=== PATIENT | male | born 1940 | race Caucasian/White ===

== ENCOUNTER → 2019-02-18 11:17 | Outpatient (CLI) | payer MEDICARE, SELFPAY ==
--- NOTE | 2019-02-18 11:23 | CA_ITS ---
APPROVED REPORT Specimen Collector: Gayle Damon RDCS Laterality: Bilateral Study Quality: Adequate Indications: sirena Doppler Spectral Velocity Analysis dICA (R) 85.50/24.60 cm/s dICA (L) 95.40/24.10 cm/s Gypsy (R) 83.90/23.00 cm/s Gypsy (L) 80.50/20.60 cm/s pICA (R) 72.20/20.30 cm/s pICA (L) 51.30/16.00 cm/s dCCA (R) 83.40/12.30 cm/s dCCA (L) 77.10/13.50 cm/s pCCA (R) 105.40/21.40 cm/s pCCA (L) 117.00/22.30 cm/s Vert (R) 42.80/2.10 cm/s Vert (L) 37.60/5.80 cm/s ICA/CCA 1.03 ICA/CCA 1.24 Findings Duplex evaluation demonstrates stenosis of the right proximal internal carotid artery in the range of 20-49% with PSV <140 cm/sec, EDV <100 cm/sec, and IC/CC Ratio <4.0.Duplex evaluation demonstrates stenosis of the left proximal internal carotid artery <20% with PSV <140 cm/sec, EDV <100 cm/sec, and IC/CC Ratio <4.0.Antegrade flow seen bilateral vertebral arteries. Technically difficult exam secondary to anatomy Conclusion Duplex evaluation demonstrates stenosis of the right proximal internal carotid artery in the range of 20-49% with PSV <140 cm/sec, EDV <100 cm/sec, and IC/CC Ratio <4.0.Duplex evaluation demonstrates stenosis of the left proximal internal carotid artery <20% with PSV <140 cm/sec, EDV <100 cm/sec, and IC/CC Ratio <4.0.Antegrade flow seen bilateral vertebral arteries. Technically difficult exam secondary to anatomy Electronically signed by : Stas Jimenez MD 02/19/2019 14:38:42
== END ==
PROVIDERS: Visit Provider Nurse Practitioner Family
DX: R42 Dizziness and giddiness; I65.23 Occlusion and stenosis of bilateral carotid arteries
CPT/HCPCS: 93880

== ENCOUNTER → 2020-07-09 07:56 | Outpatient (CLI) | payer MEDICARE, SELFPAY ==
--- NOTE | 2020-07-09 07:58 | CA_ITS ---
APPROVED REPORT EXAM: Comprehensive 2D, Doppler, and color-flow Echocardiogram Refinery Operator Coking: Diana Bhandari RT(R) Ht: 5 ft 9 in Wt: 176lbs BSA: 1.96 BP: 160/74 mmHg Indications: CAD, SOA, ex smoker, HTN, hyperlipidemia, AFIB, GERD, JONES 2D Dimensions LVOT 2.10 cm (M/F) 1.5-2.5 LA Volume 88.10 mL LA Volume Index 45.17 mL/m2 (M/F) 16-34 M-Mode Dimensions RVDd 3.12 cm (0.9-2.6) LA Diam 4.15 cm (1.9-4.0) LVDd 4.79 cm (3.5-5.7) Ao Diam 3.70 cm (2.0-3.7) LVDs 3.61 cm (3.5-5.7) IVSd 1.03 cm (0.6-1.1) PWd 0.95 cm (0.6-1.1) EF (Teich) 48.80% FS 24.60% EDV (Teich) 107.00 mL TAPSE 1.43 (<1.7) ESV (Teich) 54.80 mL Left Ventricle Left atrium is mildly enlarged, left ventricle is normal size, mild concentric left ventricular hypertrophy, visually estimated ejection fraction 55% with no regional wall motion abnormality, diastolic parameters are inconclusive. Right Ventricle Right atrium and right ventricle are mildly enlarged with normal contractility. Aortic Valve Aortic valve is thickened and calcified without Doppler evidence of aortic stenosis or aortic insufficiency. Mitral Valve Mitral valve leaflets are minimally thickened, there is mild mitral regurgitation. Tricuspid Valve Tricuspid grossly normal, there is mild tricuspid regurgitation, tricuspid regurgitation jet velocity is inadequate for calculation of the right ventricular systolic pressure. Pulmonic Valve Pulmonic valve is poorly visualized. Great Vessels Aortic root is normal size. Pericardium No significant pericardial effusion noted. Conclusion 1. Mild biatrial normal, normal left ventricular size, mild concentric left ventricular hypertrophy, visually estimated ejection fraction 55% with no regional wall motion abnormality, diastolic parameters are inconclusive. 2. Thickened and calcified aortic valve without Doppler evidence of aortic stenosis or aortic insufficiency. 3. Mild mitral and tricuspid regurgitation. 4. No significant pericardial effusion noted. Electronically signed by : René Reynaga, 07/09/2020 14:58:45
--- NOTE | 2020-07-09 07:58 | CA_ITS ---
APPROVED REPORT Special Needs Caregiver: CHINYERE Laterality: Bilateral Study Quality: Fair Indications: bilateral carotid artery stenosis Risk Factors Hypertension: Hyperlipidemia Previous smoker, CAD Doppler Spectral Velocity Analysis ECA (R) 116.50/12.50 cm/s ECA (L) 79.40/11.00 cm/s dICA (R) 104.00/27.90 cm/s dICA (L) 82.30/24.70 cm/s Gypsy (R) 60.40/14.80 cm/s Gypsy (L) 59.30/13.30 cm/s pICA (R) 88.00/24.40 cm/s pICA (L) 64.00/16.00 cm/s dCCA (R) 85.40/15.40 cm/s dCCA (L) 145.20/24.90 cm/s pCCA (R) 88.60/12.80 cm/s pCCA (L) 116.90/13.50 cm/s Vert (R) 46.20/10.60 cm/s Vert (L) 59.40/13.70 cm/s ICA/CCA 1.22 ICA/CCA 0.57 Findings Duplex evaluation demonstrates stenosis of the right proximal internal carotid artery in the range of 20-49% (unchanged from study 02/18/19). Duplex evaluation demonstrates stenosis of the left proximal internal carotid artery in the range of <20% (unchanged from study 02/18/19). Technically difficult exam secondary to anatomy. Conclusion Duplex evaluation demonstrates stenosis of the right proximal internal carotid artery in the range of 20-49% (unchanged from study 02/18/19). Duplex evaluation demonstrates stenosis of the left proximal internal carotid artery in the range of <20% (unchanged from study 02/18/19). Technically difficult exam secondary to anatomy. Electronically signed by : Stas Jimenez MD 07/09/2020 18:19:51
== END ==
PROVIDERS: PCP Nurse Practitioner Family; Visit Provider Nurse Practitioner Family
DX: E11.9 Type 2 diabetes mellitus without complications (principal); E78.2 Mixed hyperlipidemia; I11.9 Hypertensive heart disease without heart failure; I25.10 Atherosclerotic heart disease of native coronary artery without angina pectoris; I65.23 Occlusion and stenosis of bilateral carotid arteries; R06.00 Dyspnea, unspecified; R09.89 Other specified symptoms and signs involving the circulatory and respiratory systems; Z79.4 Long term (current) use of insulin; I48.20 Chronic atrial fibrillation, unspecified
CPT/HCPCS: 93306; 93880